=== PATIENT | female | born 2000 | race Caucasian/White ===

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

== ENCOUNTER → 2021-10-20 13:18 | Outpatient (CLI) | payer BC, SELFPAY ==
--- NOTE | 2021-10-20 13:23 | US_ITS ---
STUDY: ULTRASOUND BREAST - BILATERAL REASON FOR EXAM: Female, 20 years old. Bilateral breast lumps. TECHNIQUE: Axial and longitudinal images of the BILATERAL breast were performed with a high resolution ultrasound transducer. # OF IMAGES: [id number] COMPARISON: None. FINDINGS: BILATERAL Breast: Both the right and left breast were examined by ultrasound. There is evidence of dense fibroglandular tissue. No solid or cystic nodule is seen. US/Breast Complete Bilateral IMPRESSION: Unremarkable sonogram of both breasts. ASSESSMENT CATEGORY: BIRADS Category 1: Negative. A letter regarding these results will be sent to the patient by the facility within 30 days. Electronically Signed: Dain Hernandez MD at 8:30 EST , Service support ,
== END ==
PROVIDERS: PCP Registered Nurse; Referring Provider Registered Nurse; Visit Provider Registered Nurse
DX: N63.10 Unspecified lump in the right breast, unspecified quadrant (principal); N63.20 Unspecified lump in the left breast, unspecified quadrant; N64.59 Other signs and symptoms in breast
CPT/HCPCS: 76641

== ENCOUNTER → 2021-10-30 | Outpatient (CLI) | payer BC, SELFPAY | END | disposition home or self-care (01) | LOC: LABSPEC 15:18 | PROVIDERS: Physician Assistant; PCP Registered Nurse; Referring Provider Physician Assistant Surgical; Visit Provider Physician Assistant Surgical | DX: Z20.822 Contact with and (suspected) exposure to COVID-19 (principal) | CPT/HCPCS: 87635; U0005; U0003 ==

== ENCOUNTER → 2022-05-14 | Outpatient (CLI) | payer BC, SELFPAY ==
[2022-05-14 12:14] LABS: Mucous, Urine 0 SEEN /hpf (<or=2+)
[2022-05-14 12:20] LABS: Color, Urine Yellow (Yellow); Glucose, Dipstick Normal (Normal); Ketone-Dipstick Negative (Negative); Leukocyte Esterase-Dipstick 500 /ul (Negative); Nitrite-Dipstick Negative (Negative); Occult Blood-Urine 250 /ul (Negative); Protein-Dipstick 30 mg/dl (Negative); Urine Bilirubin Dipstick Negative (Negative); Urine Clarity Sl. Cloudy (Clear); Urine Urobilinogen Normal (Normal)
[2022-05-14 12:30] LABS: Bacteria 1+ /hpf (None Seen); Red Blood Cells-Urine 25-50 SEEN /hpf (0-5); Squamous Epithelial Cells - UA 0-5 SEEN /hpf (5-10); White Blood Cells 25-50 SEEN /hpf (0-5)
== END | disposition home or self-care (01) ==
LOC: LABSPEC 12:07
PROVIDERS: PCP Registered Nurse; Visit Provider Physician Assistant Surgical
DX: R35.0 Frequency of micturition (principal)
CPT/HCPCS: 81001; 87086; 87088; 87186

== ENCOUNTER 2022-07-12 11:52 | Emergency (ER) | payer BC, SELFPAY ==
[2022-07-12 11:53] VITALS: BP 127/80; PULSE 95; RESP 18; TEMP 36.8; O2SAT 100; BMI 29.6
--- NOTE | 2022-07-12 12:12 | CT_ITS ---
STUDY: CT ABDOMEN AND PELVIS WITH CONTRAST REASON FOR EXAM: Female, 21 years old. Lower abdominal and pelvic pain. RADIATION DOSAGE (If Supplied By Facility): CTDIvol = ( 14.86 ) mGy, DLP = ( 915.39 ) mGycm TECHNIQUE: Transaxial images were obtained from the dome of the diaphragm to the symphysis pubis without oral contrast. IV 100mL Isovue-300 was administered. Sagittal and coronal images were reconstructed. Individualized dose optimization techniques were used for this CT. COMPARISON: Comparison is made with prior study dated 10/28/2018. FINDINGS: The visualized lung bases are unremarkable. The visualized portions of the heart are within normal limits. Normal liver. Normal gallbladder and extrahepatic biliary system. Normal spleen. Normal pancreas. Normal bilateral adrenal glands. Normal right kidney. Normal left kidney. Normal visualized stomach. Normal small intestine. Normal colon. The appendix is visualized and appears normal. Normal abdominal aorta. Normal inferior vena cava. Normal retroperitoneum. Normal urinary bladder. Small amount of free fluid is seen in the pelvis. Multiple cysts are seen in both ovaries although the dominant cyst in the left ovary previously seen has decreased in size. Mild degree of increased markings in the surrounding pelvic fat. Inflammatory process should be ruled out. Normal abdominal wall. Normal osseous structures. CT/Abdomen/Pelvis W IV Cont ONLY IMPRESSION: Multiple bilateral ovarian cysts with small amount of free fluid in the cul-de-sac. Increased markings in the surrounding fat. Inflammatory process should be ruled out. Electronically Signed: Dain Hernandez MD at 14:25 EDT ,
--- NOTE | 2022-07-12 12:13 | ED.VIS.FEGU ---
HPI HPI - Female History of Present Illness Chief Complaint: Female C/O Narrative Narrative: This is a 21-year-old female presenting with central pelvic pain. She states it started earlier today. It sharp in nature. She states its not on the left or the right side. She states she does have a history of ovarian cyst and this is worse pain than she usually experiences with this. The last time she had a ovarian cyst was 2 years ago. She states her pain is not usually central. She denies urinary or vaginal complaints. She states she tried to have a bowel movement today but it made her acute pelvic pain worse. She had not had any constipation before this. No diarrhea. No fever, chills, body aches. Patient does not have concern for . She states I am vieira. Last menstrual period was 2 weeks ago and is normal. PFSH PFSH Home Medications escitalopram oxalate 20 mg tablet ea PO 05/14/22 [History Last Taken Unknown] norelgestromin 150 mcg-e.estradiol 35 mcg/24 hr weekly transderm patch (Xulane) 1 patch topical 05/14/22 [History Last Taken Unknown] Allergy/AdvReac Type Severity Reaction Status Date / Time No Known Allergies Allergy Verified 07/12/22 11:53 Surgical History History of tonsillectomy and adenoidectomy Social History Smoking Status: Never smoker ROS ROS ED Constitutional Constitutional ED: Denies chills or fever(s) Eyes Eyes: Denies change in vision ENT ENT ED: Denies rhinorrhea or sore throat Respiratory/Chest Respiratory/Chest: Denies cough or dyspnea Gastrointestinal Gastrointestinal: Reports abdominal pain; Denies nausea or vomiting Genitourinary Genitourinary ED: Denies dysuria or hematuria Musculoskeletal Musculoskeletal: Denies arthralgias Integumentary Denies abscess Neurologic Neurologic: Denies headache(s) or paresthesias EXAM Physical Exam Const Vital Signs: 07/12/22 11:53 07/12/22 13:52 Temperature 98.2 F Temperature Source Temporal Pulse Rate 95 71 Respiratory Rate 18 15 Blood Pressure 127/80 H 116/72 Blood Pressure Mean 95 86 Pulse Ox 100 99 Oxygen Delivery Method Room Air Room Air Positive well nourished General Appearance ED: NAD; Negative for pallor HEENT Reports moist mucous membranes Eyes PERRL and EOMs intact bilaterally Resp normal respiratory effort Cardio regular rate and regular rhythm GI GI Narrative: Mild suprapubic tenderness. No left lower quadrant or right lower quadrant tenderness. Epigastrium and right upper quadrant pain-free. Abdomen is soft. Back/Spine no CVA tenderness Neuro oriented x3 and CN's II-XII intact bilaterally Sensorium / Orientation: alert Motor Exam: strength 5/5 throughout Psych mental status grossly normal Skin no rashes or lesions noted and no wounds General Skin Exam: Negative for jaundice or pallor MDM MDM MDM Narrative Medical decision making narrative: Patient presenting with pelvic pain. She is not had any vaginal complaints or urinary complaints. Urinalysis was negative and hCG was negative. CBC and BMP are within normal limits. Patient was treated with Toradol and her symptoms did improve. I obtained a CT of the abdomen pelvis with IV contrast which does show bilateral ovarian cysts. On reevaluation the patient is comfortable. I did recommend to her that she will need to alternate Tylenol and ibuprofen at home. She is to drink plenty of fluids. Return precautions were discussed. Impression: 1. Bilateral ovarian cyst Lab Data Attestation: I reviewed the patient's lab results. Labs: Laboratory Results - last 24 hr 07/12/22 07/12/22 07/12/22 12:40 12:40 12:40 WBC 4.5 RBC 4.44 Hgb 12.6 Hct 38.2 MCV 86.0 MCH 28.4 MCHC 33.0 RDW Std Deviation 38.6 RDW Coeff of Fatmata 12.4 Plt Count 245 MPV 10.2 Immature Gran % (Auto) 0.200 Neut % (Auto) 64.3 Lymph % (Auto) 27.8 [place] % (Auto) 6.2 Eos % (Auto) 1.1 Baso % (Auto) 0.4 Absolute Neuts (auto) 2.9 Absolute Lymphs (auto) 1.26 Nucleated RBC % 0 Sodium 139 Potassium 3.7 Chloride 106 Carbon Dioxide 26.0 Anion Gap 7 BUN 13 Creatinine 0.84 Estim Creat Clear Calc 111.65 Est GFR (MDRD) Af Amer 110 Est GFR (MDRD) Non-Af 91 BUN/Creatinine Ratio 15.4 Glucose 86 Calcium 8.8 Serum , Qual NEGATIVE Urine Color Urine Clarity Urine pH Ur Specific [place] Urine Protein Urine Glucose (UA) Urine Ketones Urine Occult Blood Urine Nitrite Urine Bilirubin Urine Urobilinogen Ur Leukocyte Esterase Urine RBC Urine WBC Ur Squamous Epith Cells Urine Bacteria Urine Mucus 07/12/22 13:49 WBC RBC Hgb Hct MCV MCH MCHC RDW Std Deviation RDW Coeff of Fatmata Plt Count MPV Immature Gran % (Auto) Neut % (Auto) Lymph % (Auto) [place] % (Auto) Eos % (Auto) Baso % (Auto) Absolute Neuts (auto) Absolute Lymphs (auto) Nucleated RBC % Sodium Potassium Chloride Carbon Dioxide Anion Gap BUN Creatinine Estim Creat Clear Calc Est GFR (MDRD) Af Amer Est GFR (MDRD) Non-Af BUN/Creatinine Ratio Glucose Calcium Serum , Qual Urine Color Yellow Urine Clarity Sl. Cloudy Urine pH 6.0 Ur Specific [place] 1.020 Urine Protein 15 H Urine Glucose (UA) Normal Urine Ketones Negative Urine Occult Blood Negative Urine Nitrite Negative Urine Bilirubin Negative Urine Urobilinogen Normal Ur Leukocyte Esterase Negative Urine RBC 0 SEEN Urine WBC 0 SEEN Ur Squamous Epith Cells 0 SEEN Urine Bacteria 1+ Urine Mucus 0 SEEN Radiography Diagnostic Testing: Clinical Impression(s) from Imaging Studies Abdomen/Pelvis CT 07/12/22 12:12 IMPRESSION: Multiple bilateral ovarian cysts with small amount of free fluid in the cul-de-sac. Increased markings in the surrounding fat. Inflammatory process should be ruled out. Electronically Signed: Dain Hernandez MD at 14:25 EDT Reading Location ID and State: [address] [place] [address] , Service support , Discharge Plan Triage Chief Complaint: Female C/O ED Provider: Damien Joe Dx/Rx/DC Orders Prescriptions: No Action Xulane 150-35 mcg/24 hr patch weekly 1 patch topical escitalopram oxalate 20 mg tablet PO Label Comments: TAKE 1 TABLET BY MOUTH ONCE DAILY Primary Care Provider: Linda Finn NP Referrals: Linda Finn NP, [facility] [Primary Care Provider] -
[2022-07-12] MEDS: Ketorolac 15 MG/ML Vial IV (12:42)
[2022-07-12 12:58] LABS: Absolute Lymphocyte Count 1.26 X10^3/uL (0.83-4.51); Absolute Neutrophil Count 2.9 X10^3/uL (2.0-7.7); Basophil# 0.02 X10^3/uL; Basophil% 0.4 % (0-1); Eosinophil# 0.05 X10^3/uL; Eosinophils% 1.1 % (0-5); Hematocrit 38.2 % (37-47); Hemoglobin 12.6 g/dL (12.0-15.0); Lymphocyte # 1.26 X10^3/ul (0.83-4.51); Lymphocyte % 27.8 % (19-41); Mean Corpuscular Hgb 28.4 pg (27.0-32.0); Mean Platelet Vol. 10.2 fl (6.2-12.0); Monocyte# 0.28 X10^3/uL; Monocyte% 6.2 % (0-10); NRBC Flagged by Analyzer 0 % (0-5); Neutrophil # 2.92 X10^3/uL (2.7-7.7); Neutrophil % 64.3 % (47-70); Platelet Count 245 K/mm3 (150-450); RBC Distribution Width CV 12.4 % (11.6-14.6); RBC Distribution Width SD 38.6 fl (35.1-43.9); Red Blood Count 4.44 M/mm3 (4.2-5.4); White Blood Count 4.5 K/mm3 (4.4-11.0)
[2022-07-12 13:05] LABS: Anion Gap 7 (5-15); BUN 13 mg/dL (7-18); BUN/Creat Ratio 15.4 RATIO (10-20); Calcium,Total 8.8 mg/dL (8.5-10.1); Chloride 106 mmol/L (98-107); Creatinine, Serum 0.84 mg/dL (0.55-1.02); EST Glomerular Filtration Rate 91 mL/min (>60); Est Glom Filt Rate - Afr Amer 110 mL/min (>60); Estimated Creatinine Clearance 111.65 ml/min; Glucose 86 mg/dL (74-106); Potassium 3.7 mmol/L (3.5-5.1); Sodium Level 139 mmol/L (136-145)
[2022-07-12 13:32] LABS: Internal QC Validated? YES +Cl - CLEAR BKGD; Pregnancy, Serum, hCG Quali. NEGATIVE Negative
[2022-07-12 13:52] VITALS: BP 116/72; PULSE 71; RESP 15; O2SAT 99
[2022-07-12 13:53] LABS: Mucous, Urine 0 SEEN /hpf (<or=2+); Red Blood Cells-Urine 0 SEEN /hpf (0-5); Squamous Epithelial Cells - UA 0 SEEN /hpf (5-10)
[2022-07-12 13:56] LABS: Color, Urine Yellow (Yellow); Glucose, Dipstick Normal (Normal); Ketone-Dipstick Negative (Negative); Leukocyte Esterase-Dipstick Negative /ul (Negative); Nitrite-Dipstick Negative (Negative); Occult Blood-Urine Negative /ul (Negative); Protein-Dipstick 15 mg/dl (Negative); Urine Bilirubin Dipstick Negative (Negative); Urine Clarity Sl. Cloudy (Clear); Urine Urobilinogen Normal (Normal)
[2022-07-12 14:02] LABS: Bacteria 1+ /hpf (None Seen); White Blood Cells 0 SEEN /hpf (0-5)
[2022-07-12 15:06] VITALS: BP 109/67; PULSE 58; RESP 16; O2SAT 98
== END 2022-07-12 15:07 | disposition home or self-care (01) ==
PROVIDERS: Emergency Provider Student in an Organized Health Care Education/Training Program; PCP Registered Nurse; Visit Provider Student in an Organized Health Care Education/Training Program
DX: N83.202 Unspecified ovarian cyst, left side (principal); N83.201 Unspecified ovarian cyst, right side
CPT/HCPCS: 74177; 80048; 81001; 84703; 85025; 96374; 99283; Q9967; A4216

== ENCOUNTER → 2025-03-16 | Outpatient (CLI) | payer BC, SELFPAY | END | disposition home or self-care (01) | LOC: LABSPEC 16:57 | PROVIDERS: PCP Registered Nurse; Visit Provider Physician Assistant | DX: N89.8 Other specified noninflammatory disorders of vagina (principal) | CPT/HCPCS: 87086 ==

== ENCOUNTER → 2025-10-15 | Outpatient (CLI) | payer BC, SELFPAY ==
[2025-10-15 11:04] LABS: Vitamin D,25 Hydroxy 19.1 ng/mL (30-100)
== END | disposition home or self-care (01) ==
LOC: MTLAB 08:40
PROVIDERS: PCP Family Medicine; Referring Provider Family Medicine; Visit Provider Family Medicine
DX: Z00.00 Encounter for general adult medical examination without abnormal findings (principal); Z13.1 Encounter for screening for diabetes mellitus
CPT/HCPCS: 36415; 82306; 83036; 84443